=== PATIENT | male | born 1940 | race African-American/Black ===

== ENCOUNTER 2018-04-22 08:53 | Outpatient (CLI) | payer MEDICARE, BC ==
--- NOTE | 2018-04-22 11:18 | CT ---
CT ABDOMEN WITH AND WITHOUT CONTRAST: CT PELVIS WITH AND WITHOUT CONTRAST: HISTORY: Ongoing hematuria. COMPARISON: None. FINDINGS: ABDOMEN: The lung bases are clear. The heart size is normal. No pericardial effusion. The descend ing thoracic aorta and abdominal aorta have a normal caliber. There is no periaortic fat stranding. Unremarkable gallbladder. Patent portal vein. The liver, spleen, pancreas, and adrenal glands have appropriate enhancement. No gastrohepatic, retrocrural, or periportal lymphadenopathy. Umbilical hernia containing a small amount of mesenteric fat. No bowel herniation. No mesenteric mass, lymphadenopathy, free air, or free fluid. Limited evaluation of the alimentary canal due to lack of oral contrast administration. Bowel loops are decompressed. The ileocecal junction is normal. Normal caliber appendix. Scattered fecal mater ial in a nondistended, nondilated colon. Occasional diverticulum. No diverticulitis. Noncontrast images demonstrate symmetric attenuation of the kidneys. Bilaterally, no hydronephrosis, nephrolithiasis, or perinephric fat stranding. There is symmetric enhancement of the renal cortex. No abnormal enhancing cortical masses. On the delayed images, there is symmetric excretion of contr ast into an unremarkable intrarenal and extrarenal collecting system. There are no filling defects i n the opacified left and right intrarenal and extrarenal collecting system. There are a few parapelv ic cysts in the left hemipelvis. PELVIS: Mild prostatic hypertrophy with mass effect upon the floor of the urinary bladder. Contrast opacifies the dependent portion of the urinary bladder. The urinary bladder mucosa is unremarkable. Bilateral inguinal hernias containing fat are noted. No lytic or blastic lesions of the osseous structures. IMPRESSION: 1. No evidence of nephrolithiasis or obstructive uropathy. 2. No abnormal enhancement of the opacified intrarenal and extrarenal collecting system. 3. Incidental level parapelvic cyst. POS: [facility]
== END 2018-04-22 08:54 | disposition home or self-care (01) ==
LOC: SCSCT 08:53
PROVIDERS: ATTEND Urology
DX: R31.0 Gross hematuria (principal); R31.21 Asymptomatic microscopic hematuria; M24.859 Other specific joint derangements of unspecified hip, not elsewhere classified
CPT/HCPCS: 74178; 82565

== ENCOUNTER 2022-12-27 09:11 | Outpatient (CLI) | payer MEDICARE, BC | END 2022-12-27 09:12 | disposition home or self-care (01) | LOC: RAD 09:11 | PROVIDERS: ATTEND Physician Assistant Medical | DX: R13.12 Dysphagia, oropharyngeal phase (principal); K13.70 Unspecified lesions of oral mucosa; R12 Heartburn | CPT/HCPCS: 74230 ==